=== PATIENT | female | born 1955 | race Caucasian/White ===

== ENCOUNTER 2019-07-10 14:40 | Emergency (ER) | payer MEDICARE, OTHER, SELFPAY ==
[2019-07-10 14:43] VITALS: BP 123/81; PULSE 91; RESP 17; TEMP 36.6; O2SAT 98; BMI 43.1
--- NOTE | 2019-07-10 14:52 | XRR_ITS ---
PROCEDURE INFORMATION: Exam: XR Left Hip with Pelvis when Performed Exam date and time: 07/10/2019 3:33 PM Age: 63 years old Clinical indication: Hip pain; Left hip TECHNIQUE: Imaging protocol: XR Left hip with pelvis when performed. Views: 2 or 3 views. COMPARISON: No relevant prior studies available. FINDINGS: Bones/joints: There are oblique fractures at the base of the femoral neck extending into the intertrochanteric region without significant displacement. There is a hip joint effusion. Soft tissues: Edema and/or hematoma is present in the soft tissues adjacent to the fracture site. XR/XR hip LT 2-3V wo/w pel* [id number] IMPRESSION: There are oblique fractures at the base of the femoral neck extending into the intertrochanteric region without significant displacement.
--- NOTE | 2019-07-10 14:52 | USR_ITS ---
PROCEDURE INFORMATION: Exam: US Duplex Left Lower Extremity Veins, Limited Exam date and time: 07/10/2019 2:53 PM Age: 63 years old Clinical indication: Pain; Swelling (edema) of limb; Lower extremity, left; Leg, upper; Additional info: Pain swelling TECHNIQUE: Imaging protocol: Real-time Duplex ultrasound of the Left Lower Extremity with 2-D deleon scale, color Doppler flow and spectral waveform analysis with image documentation. Limited exam focused on the left lower extremity veins. COMPARISON: No relevant prior studies available. FINDINGS: Left deep veins: Unremarkable. The common femoral, femoral, proximal profunda femoral and popliteal veins are patent without thrombus. Normal Doppler waveforms. Normal compressibility and/or augmentation response. Left superficial veins: Unremarkable. Saphenofemoral junction is patent without thrombus. Soft tissues: Unremarkable. US/CV venous duplex [facility] [id number] IMPRESSION: No evidence of deep vein thrombosis.
--- NOTE | 2019-07-10 14:54 | W.ED.EXTPRO ---
HPI - Extremity Problem General: Chief complaint: Extremity Problem,Nontraumatic Stated complaint: LEFT HIP PAIN NONTRAUMATIC Time Seen by Provider: 07/10/19 14:41 History of Present Illness: HPI Narrative: 66-year-old female comes in complaining of left hip pain. She states her left hip feels like it collapsed on . She complained of some left lower leg swelling as well she denies any chest pain or dyspnea no abdominal pain no dysuria urgency or frequency nausea or vomiting she did recently come to this area after a long car ride from [place]. Complaint: extremity pain and extremity swelling Onset (ago): hour(s) Pain Consistency: constant Location: left and lower extremity (Left hip and calf) Quality: aching Radiation: none Relieving factors: immobilization and rest Exacerbating factors: range of motion Associated symptoms: Reports no associated symptoms; Deny chest pain, fever(s) or rash Review of Systems Const: Denies: fever(s), chills, body aches, change in appetite, fatigue or malaise ENMT: Denies: throat pain, ear or mastoid pain, nasal discharge or nasal congestion Card: Denies: chest pain, edema, dyspnea on exertion or orthopnea Resp: Denies: dyspnea, productive cough or non-productive cough GI: Denies: abdominal pain, nausea, vomiting, hematemesis, coffee ground emesis, diarrhea, constipation, bloating, hematochezia or melena : Denies: flank pain, difficulty voiding, dysuria, urinary frequency or urinary urgency Skin/Breast: Denies: rash or pruritus PFSH ED PFSH: Social History Smoking and tobacco status: never smoked Physical Exam Const: COMMON NORMALS: no acute distress GENERAL APPEARANCE: cooperative and comfortable ORIENTATION/CONSCIOUSNESS: Yes awake, Yes oriented to person, Yes oriented to place and Yes oriented to time HENMT: COMMON NORMALS: normocephalic, atraumatic, hearing grossly normal bilaterally, external ears normal, EAC's normal, TM's normal bilaterally, Normal nasal mucous membranes and turbinates present, moist oral mucous membranes and oropharynx normal HEAD & SCALP: normocephalic and atraumatic NOSE: Normal nasal mucous membranes and turbinates present EXTERNAL EAR: Yes external ears normal EXTERNAL AUDITORY CANAL: EAC's normal TYMPANIC MEMBRANE: TM's normal bilaterally Eye: COMMON NORMALS: Equal, round and reactive pupils present, EOMs intact bilaterally, conjunctivae normal and no scleral icterus CONJUNCTIVA: Yes conjunctivae normal PUPIL: Yes Equal, round and reactive pupils present Neck/C-Spine: COMMON NORMALS: full ROM, no lymphadenopathy, supple and no JVD Lymph: LYMPHATIC: no lymphadenopathy noted and no lymphedema noted Resp: COMMON NORMALS: normal respiratory effort, No retractions, No use of accessory muscles and clear to auscultation bilaterally AUSCULTATION: clear to auscultation bilaterally Cardio: COMMON NORMALS: no JVD, regular rate, regular rhythm and No murmurs present (Cardio) RATE: regular rate RHYTHM: regular rhythm GI: COMMON NORMALS: Soft to palpation and No hepatosplenomegaly present AUSCULTATION: Yes normoactive bowel sounds PALPATION: Yes Soft to palpation, No Tenderness to palpation present (GI), No Guarding due to palpation present (GI) and Yes No hepatosplenomegaly present Extremity: COMMON NORMALS: normal to inspection, capillary refill normal, no clubbing, cyanosis or edema, no calf tenderness and no pedal edema Neuro: SENSORIUM/ORIENTATION: Yes oriented to person, Yes oriented to place and Yes oriented to time Skin: COMMON NORMALS: no rashes or lesions noted GENERAL SKIN EXAM: no rashes or lesions noted Course Vital Signs: Vital signs: Vital Signs Temperature 97.8 F 07/10/19 14:43 Pulse Rate 78 07/10/19 18:39 Respiratory Rate 18 07/10/19 18:54 Blood Pressure 156/66 07/10/19 18:39 Pulse Oximetry 87 L 07/10/19 18:54 MDM - Extremity (Nontraumatic) MDM Narrative: Medical decision making narrative: Reviewed findings with the patient. She has an acute oblique intertrochanteric hip fracture additionally she is fairly anemic. We will go ahead and transfer her to us [facility] in [facility]. Unfortunately we do not have orthopedic coverage this weekend so we cannot attend of this injury for her. Discussed with her and she expressed understanding. Lab Data: Labs: Lab Results 07/10/19 07/10/19 Range/Units 16:25 16:25 WBC 8.8 (4.0-10.0) 10^3/ uL RBC 3.67 L (4.1-5.3) 10^6/u L Hgb 8.5 L (11.5-15.3) g/dL Hct 27.6 L (37.0-47.0) % MCV 75.2 L (81-99) fL MCH 23.2 L (28.0-34.0) pg MCHC 30.8 (30.0-36.0) g/dL RDW 18.0 H (12.1-15.1) % Plt Count 286 (130-400) 10^3/c mm MPV 8.7 (7.4-10.4) fL Neut % (Auto) 69.7 % Lymph % (Auto) 17.5 % [place]entry % (Auto) 6.5 % Eos % (Auto) 5.5 % Baso % (Auto) 0.3 % Neut # (Auto) 6.1 (1.8-7.7) 10^3/u L Lymph # (Auto) 1.5 (0.8-4.8) 10^3/u L Gentry # (Auto) 0.6 (0.2-0.9) 10^3/u L Eos # (Auto) 0.5 (0.0-0.8) 10^3/u L Baso # (Auto) 0.0 (0.0-0.1) 10^3/u L Nucleated RBC % (a uto) 0 % Nucleated RBCs # 0.0 /100WBC Sodium 134 L (136-145) mmol/L Potassium 3.9 (3.5-5.1) mmol/L Chloride 96 L (98-107) mmol/L Carbon Dioxide 25 (22-29) mmol/L Anion Gap 16.9 (5-19) BUN 10 (8-23) mg/dL Creatinine 0.5 (0.5-0.9) mg/dL GFR Calculation 125.0 (90-130) mL/min Glucose 105 (65-115) mg/dL Calculated Osmolal ity 274 L (285-295) mOsm/k g Calcium 9.5 (8.5-10.5) mg/dL Total Bilirubin 0.2 (0.15-1.2) mg/dL AST 18 (0-32) U/L ALT 11 (0-33) U/L Alkaline Phosphata se 103 (35-105) IU/L Total Protein 5.8 L (6.6-8.7) g/dL Albumin 3.6 (3.5-5.2) g/dL Globulin 2.2 (1.3-4.6) g/dL Discharge Plan Discharge Patient Disposition: Xfer Other Clinical Impression: Closed intertrochanteric fracture of left hip Condition: Stable Discharge Date/Time: 07/10/19 19:45 Coding Level of Care Code ED Medical Science Liaison for Colleen Fwlatosha Exam Comprehensive
[2019-07-10 15:46] VITALS: PULSE 72
--- NOTE | 2019-07-10 15:53 | ECG_ITS ---
Measurements Intervals [place] Rate: 88 P: 55 SD: 167 QRS: -21 QRSD: 94 T: 58 QT: 378 QTc: 458 SINUS RHYTHM BORDERLINE LEFT AXIS DEVIATION [QRS AXIS < -20] No previous ECG available for comparison Electronically Signed On 07-11-2019 9:36:55 CDT by Kayla Renteria M.[email or web address]
[2019-07-10 16:34] LABS: Basophils % 0.3 %; Eosinophils # 0.5 10^3/uL (0.0-0.8); Eosinophils % 5.5 %; Hematocrit 27.6 % (37.0-47.0); Hemoglobin 8.5 g/dL (11.5-15.3); Lymphocytes # 1.5 10^3/uL (0.8-4.8); Lymphocytes % 17.5 %; Mean Corpuscular HGB Conc 30.8 g/dL (30.0-36.0); Mean Corpuscular Hemoglobin 23.2 pg (28.0-34.0); Mean Corpuscular Volume 75.2 fL (81-99); Mean Platelet Volume 8.7 fL (7.4-10.4); Monocytes # 0.6 10^3/uL (0.2-0.9); Monocytes % 6.5 %; Neutrophils # 6.1 10^3/uL (1.8-7.7); Neutrophils % 69.7 %; Nucleated Red Blood Cells % 0 %; Platelet Count 286 10^3/cmm (130-400); Red Blood Count 3.67 10^6/uL (4.1-5.3); White Blood Count 8.8 10^3/uL (4.0-10.0)
[2019-07-10 16:47] LABS: Alanine Aminotransferase 11 U/L (0-33); Albumin Level 3.6 g/dL (3.5-5.2); Alkaline Phosphatase 103 IU/L (35-105); Anion Gap 16.9 (5-19); Aspartate Amino Transferase 18 U/L (0-32); Blood Urea Nitrogen 10 mg/dL (8-23); Calcium 9.5 mg/dL (8.5-10.5); Carbon Dioxide 25 mmol/L (22-29); Chloride 96 mmol/L (98-107); Globulin 2.2 g/dL (1.3-4.6); Glucose 105 mg/dL (65-115); Osmolality Calculated 274 mOsm/kg (285-295); Potassium 3.9 mmol/L (3.5-5.1); Sodium 134 mmol/L (136-145); Total Bilirubin 0.2 mg/dL (0.15-1.2); Total Protein 5.8 g/dL (6.6-8.7)
[2019-07-10] MEDS: ondansetron 2 mg/ML SDV 2 mL 4 MG IVP (17:02)
[2019-07-10] MEDS: pantoprazole 40 mg SDV IVP (17:02)
[2019-07-10 17:03] VITALS: RESP 18; O2SAT 98
[2019-07-10] MEDS: HYDROmorphone 1 mg/mL INJ 1 mL 0.5 MG IVP ×2 (17:03→18:54)
[2019-07-10 18:39] VITALS: BP 156/66; PULSE 78; RESP 18; O2SAT 98
[2019-07-10 18:54] VITALS: RESP 18; O2SAT 87
== END 2019-07-10 19:45 | disposition other institution (70) ==
PROVIDERS: Emergency Provider Family Medicine
DX: S72.142A Displaced intertrochanteric fracture of left femur, initial encounter for closed fracture (principal); X58.XXXA Exposure to other specified factors, initial encounter; M79.605 Pain in left leg
CPT/HCPCS: 12345; 36415; 73502; 80053; 85025; 93005; 93971; 96374; 96375; 96376; 99281; 99285; C9113; J1170; J2405